=== PATIENT | female | born 1990 ===

== ENCOUNTER → 2021-09-30 | Day surgery (SDC) | payer OTHER ==
[~2021-09-30] VITALS: Ht 144.8 cm; Wt 58.0 kg
[~2021-09-30] MED LIST: IBUPROFEN800 MG PO
[2021-09-30 06:32] LABS: HCT 40.3 % (37.0-47.0); HGB 13.6 g/dl (12.5-16.0); MCH 31.6 pg (25.0-31.0); MCHC 33.7 g/dL (32.0-36.0); MCV 93.5 fL (78.0-100.0); MPV 9.7 fL (6.0-9.5); RBC 4.31 M/uL (4.20-5.40); RDW 12.4 % (11.5-14.0); WBC 7.7 K/uL (4.0-10.5)
[2021-09-30 07:02] LABS: HCG (URINE) SCREEN NEGATIVE (NEGATIVE)
== END | disposition home or self-care (01) ==
LOC: FAS 08-19 08:00
PROVIDERS: Anesthesiology
DX: D06.0 Carcinoma in situ of endocervix (principal)
CPT/HCPCS: 36415; 84703; J0690; J1100; J1885; J2250; J2405; J2704; J3010; J7120